=== PATIENT | male | born 1985 | race Caucasian/White ===

== ENCOUNTER 2018-05-30 13:29 | Outpatient (CLI) | payer OTHER ==
--- NOTE | 2018-05-30 15:23 | RAD ---
LUMBAR SPINE THREE VIEWS: INDICATIONS: Pain back. SSIE evaluation. FINDINGS: Lumbar spine vertebral body heights and alignment are maintained. Disk space heights are relatively well preserved. IMPRESSION: No acute osseous abnormality of the lumbar spine. POS: HARINI
== END 2018-05-30 13:30 | disposition home or self-care (01) ==
LOC: NAV RAD 13:29
PROVIDERS: ATTEND Family Medicine
DX: Z02.71 Encounter for disability determination (principal); M54.9 Dorsalgia, unspecified
CPT/HCPCS: 72100